=== PATIENT | male | born 1965 | race Caucasian/White ===

== ENCOUNTER 2021-12-26 11:23 | Emergency (ER) | payer OTHER ==
--- NOTE | 2021-12-26 13:53 | RAD REPORT ---
EXAM DESCRIPTION: RAD - Chest Pa And Lat (2 Views) - 12/26/2021 1:38 pm CLINICAL HISTORY: COUGH Chest pain. COMPARISON: No comparisons FINDINGS: Mild interstitial prominence is present. This may indicate a viral infection. The heart is normal in size. No displaced fractures. IMPRESSION: Interstitial opacities bilaterally suggests mild viral infection.
--- NOTE | 2021-12-26 14:27 | ER ---
Nurse's Notes [facility] Name: Thor Allen Age: 56 yrs Sex: Male : 1965 Arrival Date: 12/26/2021 Time: 11:27 Bed 27 [facility] MD: Diagnosis: Acute bronchitis, unspecified Presentation: 12/26 11:50 Chief complaint: Patient states: Cough for 2 days. No fever. Unable to sleep well due ll1 to coughing. Coronavirus screen: Vaccine status: Patient reports being unvaccinated. Client denies travel out of the [place] in the last 14 days. cough unrelated to allergies. Ebola Screen: Patient denies travel to an Ebola-affected area in the 21 days before illness onset. Initial Sepsis Screen: Does the patient meet any 2 criteria? No. Patient's initial sepsis screen is negative. Does the patient have a suspected source of infection? Yes: Productive cough/pneumonia. Risk Assessment: Do you want to hurt yourself or someone else? Patient reports no desire to harm self or others. Onset of symptoms was December 25, 2021. 11:50 Method Of Arrival: Ambulatory ll1 11:50 Acuity: CHERYLE 3 ll1 Triage Assessment: 11:52 General: Appears uncomfortable, Behavior is calm, cooperative, appropriate for age. ll1 Pain: Denies pain. Respiratory: Reports cough that is. Historical: - Allergies: 11:49 No Known Allergies; ll1 - PMHx: 11:49 Hypertensive disorder; Hypercholesterolemia; GERD; back problems; ll1 - PSHx: 11:49 B shoulder; R ankle ORIF; ll1 - Immunization history:: Client reports having NOT received the Covid vaccine. Flu vaccine is up to date. - Social history:: Smoking status: Patient reports the use of cigarette tobacco products, smokes one-half pack cigarettes per day. Screenin:54 Abuse screen: Denies threats or abuse. Denies injuries from another. Nutritional jg9 screening: No deficits noted. Tuberculosis screening: No symptoms or risk factors identified. Fall Risk None identified. Assessment: 12:53 Reassessment: Patient appears in no apparent distress at this time. No changes from jg9 previously documented assessment. Patient and/or family updated on plan of care and expected duration. Pain level reassessed. 13:18 Reassessment: Patient appears in no apparent distress at this time. No changes from jg9 previously documented assessment. Patient and/or family updated on plan of care and expected duration. Pain level reassessed. 14:10 Reassessment: Patient appears in no apparent distress at this time. No changes from jg9 previously documented assessment. Patient and/or family updated on plan of care and expected duration. Pain level reassessed. Vital Signs: 11:50 BP 187 / 105; Pulse 87; Resp 17; Temp 98.1; Pulse Ox 100% on R/A; Weight 111.58 kg; ll1 Height 5 ft. 9 in. (175.26 cm); Pain 0/10; 12:45 BP 132 / 76; Pulse 81; Resp 17 S; Pulse Ox 98% on R/A; jg9 14:00 BP 139 / 80; Pulse 83; Resp 17 S; Pulse Ox 100% on R/A; jg9 14:15 BP 145 / 99; Pulse 83; Resp 17 S; Pulse Ox 96% ; jg9 11:50 Body Mass Index 36.33 (111.58 kg, 175.26 cm) ll1 ED Course: 11:27 Patient arrived in ED. kz 11:49 Arm band placed on. ll1 11:52 Triage completed. ll1 12:15 Patient placed in an exam room, on a stretcher. ll1 12:19 Douglas Smith PA is PHCP. jr8 12:19 Gwendolyn Whitt MD is Attending Physician. jr8 12:52 Deepti Bower, RN is Primary Nurse. jg9 12:54 Patient has correct armband on for positive identification. Bed in low position. Call jg9 light in reach. 13:18 No apparent distress. Resting quietly. Awaiting for x-ray. jg9 13:38 XRAY Chest Pa And Lat (2 Views) In Process Unspecified. EDMS 14:10 No apparent distress. Resting quietly. Awaiting radiology results. jg9 14:34 No provider procedures requiring assistance completed. jg9 14:34 Patient did not have IV access during this emergency room visit. jg9 Administered Medications: No medications were administered Outcome: 14:27 Discharge ordered by . jr8 14:34 Discharged to home ambulatory. jg9 14:34 Condition: stable 14:34 Discharge instructions given to patient, Instructed on discharge instructions, follow up and referral plans. Demonstrated understanding of instructions, follow-up care, medications, Prescriptions given X 3. 14:34 Patient left the ED. jg9 Signatures: Dispatcher [employer] EDMS Douglas Smith PA PA jr8 Leela Hair RN RN ll1 Deepti Bower RN RN jg9 Yasmine Ochoa
--- NOTE | 2021-12-26 14:27 | EDPHYS ---
Physician Documentation [facility] Name: Thor Allen Age: 56 yrs Sex: Male : 1965 Arrival Date: 12/26/2021 Time: 11:27 Bed 27 Private MD: ED Physician Gwendolyn Whitt HPI: 12/26 14:25 This 56 yrs old Male presents to ER via Ambulatory with complaints of Cough. jr8 14:25 Onset: The symptoms/episode began/occurred gradually, 2 day(s) ago. Severity of jr8 symptoms: At their worst the symptoms were mild, in the emergency department the symptoms are unchanged. Modifying factors: The symptoms are alleviated by nothing, the symptoms are aggravated by exertion. Associated signs and symptoms: The patient has no apparent associated signs or symptoms. The patient has not experienced similar symptoms in the past. The patient has not recently seen a physician. Historical: - Allergies: 11:49 No Known Allergies; ll1 - PMHx: 11:49 Hypertensive disorder; Hypercholesterolemia; GERD; back problems; ll1 - PSHx: 11:49 B shoulder; R ankle ORIF; ll1 - Immunization history:: Client reports having NOT received the Covid vaccine. Flu vaccine is up to date. - Social history:: Smoking status: Patient reports the use of cigarette tobacco products, smokes one-half pack cigarettes per day. ROS: 14:25 Eyes: Negative for injury, pain, redness, and discharge, ENT: Negative for injury, jr8 pain, and discharge, Neck: Negative for injury, pain, and swelling, Cardiovascular: Negative for chest pain, palpitations, and edema, Abdomen/GI: Negative for abdominal pain, nausea, vomiting, diarrhea, and constipation, Back: Negative for injury and pain, MS/Extremity: Negative for injury and deformity, Skin: Negative for injury, rash, and discoloration, Neuro: Negative for headache, weakness, numbness, tingling, and seizure. 14:25 Respiratory: Positive for cough, Negative for dyspnea on exertion, shortness of breath, sputum production, wheezing. Exam: 14:25 Constitutional: This is a well developed, well nourished patient who is awake, alert, jr8 and in no acute distress. ENT: Nares patent. No nasal discharge, no septal abnormalities noted. Tympanic membranes are normal and external auditory canals are clear. Oropharynx with no redness, swelling, or masses, exudates, or evidence of obstruction, uvula midline. Mucous membranes moist. Neck: Trachea midline, no thyromegaly or masses palpated, and no cervical lymphadenopathy. Supple, full range of motion without nuchal rigidity, or vertebral point tenderness. No Meningismus. Cardiovascular: Regular rate and rhythm with a normal S1 and S2. No gallops, murmurs, or rubs. Normal PMI, no JVD. No pulse deficits. Respiratory: Lungs have equal breath sounds bilaterally, clear to auscultation and percussion. No rales, rhonchi or wheezes noted. No increased work of breathing, no retractions or nasal flaring. Abdomen/GI: Soft, non-tender, with normal bowel sounds. No distension or tympany. No guarding or rebound. No evidence of tenderness throughout. Back: No spinal tenderness. No costovertebral tenderness. Full range of motion. Skin: Warm, dry with normal turgor. Normal color with no rashes, no lesions, and no evidence of cellulitis. MS/ Extremity: Pulses equal, no cyanosis. Neurovascular intact. Full, normal range of motion. Neuro: Awake and alert, GCS 15, oriented to person, place, time, and situation. Cranial nerves II-XII grossly intact. Motor strength 5/5 in all extremities. Sensory grossly intact. Vital Signs: 11:50 BP 187 / 105; Pulse 87; Resp 17; Temp 98.1; Pulse Ox 100% on R/A; Weight 111.58 kg; ll1 Height 5 ft. 9 in. (175.26 cm); Pain 0/10; 12:45 BP 132 / 76; Pulse 81; Resp 17 S; Pulse Ox 98% on R/A; jg9 14:00 BP 139 / 80; Pulse 83; Resp 17 S; Pulse Ox 100% on R/A; jg9 14:15 BP 145 / 99; Pulse 83; Resp 17 S; Pulse Ox 96% ; jg9 11:50 Body Mass Index 36.33 (111.58 kg, 175.26 cm) ll1 MDM: 12:57 Patient medically screened. jr8 14:25 Data reviewed: vital signs, nurses notes, radiologic studies, plain films. Data jr8 interpreted: Pulse oximetry: on room air is 100 %. Interpretation: normal. Counseling: I had a detailed discussion with the patient and/or guardian regarding: the historical points, exam findings, and any diagnostic results supporting the discharge/admit diagnosis, radiology results, the need for outpatient follow up, a family practitioner, to return to the emergency department if symptoms worsen or persist or if there are any questions or concerns that arise at home. 12/26 13:14 Order name: XRAY Chest Pa And Lat (2 Views); Complete Time: 14:25 jr8 Administered Medications: No medications were administered Disposition Summary: 12/26/21 14:27 Discharge Ordered Location: Home jr8 Problem: new jr8 Symptoms: have improved jr8 Condition: Stable jr8 Diagnosis - Acute bronchitis, unspecified jr8 Followup: jr8 - With: Private Physician - When: 1 week - Reason: Recheck today's complaints, Continuance of care, Re-evaluation by your physician Discharge Instructions: - Discharge Summary Sheet jr8 - Acute Bronchitis, Adult jr8 Forms: - Medication Reconciliation Form jr8 - Thank You Letter jr8 - Antibiotic Education jr8 - Prescription Opioid Use jr8 Prescriptions: - Medrol (Patel) 4 mg Oral Tablets, Dose Pack - take 1 tablet by ORAL route as directed - follow package instructions; 1 jr8 packet; Refills: 0, Product Selection Permitted - promethazine-DM 6.25-15 mg/5 mL Oral syrup - take 5 milliliter by ORAL route every 4-6 hours As needed as needed, not to jr8 exceed 30 mL in 24 hours; 120 milliliter; Refills: 0, Product Selection Permitted - albuterol sulfate 90 mcg/actuation Inhalation HFA aerosol inhaler - inhale 2 puff by INHALATION route every 4-6 hours As needed; 1 Inhaler; jr8 Refills: 0, Product Selection Permitted Signatures: Dispatcher [employer] Douglas Barbour PA PA jr8 Leela Hair RN RN ll1
[2021-12-26 14:49] VITALS: TEMP 98.1
[2021-12-26 14:52] VITALS: BP 145/99; O2SAT 96
== END 2021-12-26 14:34 | disposition home or self-care (01) ==
LOC: ER 11:23
DX: J20.9 Acute bronchitis, unspecified (principal); I10 Essential (primary) hypertension; E78.00 Pure hypercholesterolemia, unspecified; F17.210 Nicotine dependence, cigarettes, uncomplicated
CPT/HCPCS: 71046; 99283

== ENCOUNTER 2021-12-28 21:44 | Emergency (ER) | payer OTHER ==
[2021-12-28] MEDS ORDERED: dexAMETHasone 10 MG/ML VIAL ONE (23:04)
[2021-12-28] MEDS ORDERED: HYDROCODONE/CHLORPHEN 5 ML/OSYR ONE (23:04)
[2021-12-28] MEDS ORDERED: LEVALBUTEROL 1.25 MG/3 ML NEB ONE (23:05)
[2021-12-28] MEDS ORDERED: KETOROLAC 30 MG/ML INJ ONE (23:25)
--- NOTE | 2021-12-29 01:07 | ER ---
Nurse's Notes [facility] Name: Thor Allen Age: 56 yrs Sex: Male : 1965 Arrival Date: 12/28/2021 Time: 21:48 Bed 5 Private MD: Diagnosis: Acute bronchitis, unspecified Presentation: 12/28 21:57 Chief complaint: Patient states: Diagnosed with viral infection from this ER two weeks ld1 ago. SOB, cough, chest pain around 11 this morning. Pt reporting chest pain "due to coughing.". Coronavirus screen: Client presents with at least one sign or symptom that may indicate coronavirus-19. Standard/surgical mask placed on the client. Ebola Screen: No symptoms or risks identified at this time. Initial Sepsis Screen: Does the patient meet any 2 criteria? No. Patient's initial sepsis screen is negative. Does the patient have a suspected source of infection? No. Patient's initial sepsis screen is negative. Risk Assessment: Do you want to hurt yourself or someone else? Patient reports no desire to harm self or others. Onset of symptoms was December 28, 2021. 21:57 Method Of Arrival: Ambulatory ld1 21:57 Acuity: CHERYLE 3 ld1 Triage Assessment: 22:01 General: Appears in no apparent distress. comfortable, Behavior is cooperative, ld1 appropriate for age, anxious. Pain: Complains of pain in chest Pain does not radiate. Pain currently is 6 out of 10 on a pain scale. Neuro: Level of Consciousness is awake, alert, obeys commands, Oriented to person, place, time, situation, Appropriate for age. Cardiovascular: Capillary refill < 3 seconds Patient's skin is warm and dry. Respiratory: Reports shortness of breath cough that is Airway is patent Respiratory effort is even, unlabored, Onset: The symptoms/episode began/occurred gradually, the patient has moderate shortness of breath. GI: Abdomen is round non-distended. : No signs and/or symptoms were reported regarding the genitourinary system. Derm: No signs and/or symptoms reported regarding the dermatologic system. Musculoskeletal: No signs and/or symptoms reported regarding the musculoskeletal system. Historical: - PMHx: 22: back problems; GERD; Hypercholesterolemia; Hypertensive disorder; ld1 - PSHx: 22:01 B shoulder; R ankle ORIF; ld1 - Immunization history:: Adult Immunizations up to date, Client reports having NOT received the Covid vaccine. - Social history:: Smoking status: Patient reports the use of cigarette tobacco products, denies chronic smoking, but will smoke occasionally, Patient/guardian denies using alcohol. Screenin:11 Abuse screen: Denies threats or abuse. Denies injuries from another. Nutritional as6 screening: No deficits noted. Tuberculosis screening: No symptoms or risk factors identified. Fall Risk None identified. Assessment: 23:10 General: Appears in no apparent distress. comfortable, Behavior is calm, cooperative. as6 Neuro: Level of Consciousness is awake, alert, obeys commands, Oriented to person, place, time, situation. Cardiovascular: Rhythm is sinus rhythm. Respiratory: Reports shortness of breath cough that is hacking, persistent Airway is patent Trachea midline Respiratory effort is even, unlabored, Respiratory pattern is regular, symmetrical, Breath sounds are clear bilaterally. 12/29 00:59 Respiratory: Reports cough that is. as6 Vital Signs: 12/28 21:57 BP 151 / 119; Pulse 123; Resp 20; Temp 97.9(TE); Pulse Ox 100% on R/A; Weight 111.58 ld1 kg; Height 5 ft. 9 in. (175.26 cm); Pain 6/10; 23:10 BP 142 / 104; Pulse 88; Resp 18 S; Pulse Ox 100% on R/A; as6 03 00:56 BP 148 / 103; Pulse 104; Resp 20 S; Pulse Ox 100% on R/A; as6 01:25 Pulse 94; Resp 20; Pulse Ox 100% ; tw5 12/28 21:57 Body Mass Index 36.33 (111.58 kg, 175.26 cm) ld1 ED Course: 12/28 21:48 Patient arrived in ED. es 21:52 Luis Meza NP is PHCP. pm1 21:52 Dimas Boyer DO is Attending Physician. pm1 21:57 Arm band placed on right wrist. ld1 22:01 Triage completed. ld1 22:59 Walter Goetz, ANUJA is Primary Nurse. as6 23:11 Bed in low position. Call light in reach. Pulse ox on. NIBP on. as6 12/29 00:22 Chest Pa And Lat (2 Views) XRAY In Process Unspecified. EDMS 01:25 No provider procedures requiring assistance completed. Patient did not have IV access tw5 during this emergency room visit. Administered Medications: 12/28 23:09 Drug: Xopenex (levalbuterol) (3) 1.25 mg Route: Inhalation; as 23:09 Drug: Tussionex Pennkinetic ER (chlorpheniramine-hydrocodone) Suspension 5 ml Route: PO;as12/29 01:23 Follow up: Response: No adverse reaction tw5 12/28 23:09 Drug: Decadron (dexamethasone) 10 mg Route: IM; Site: right deltoid; as6 12/29 01:23 Follow up: Response: No adverse reaction tw5 12/28 23:25 Drug: Ketorolac 60 mg Route: IM; Site: left deltoid; as6 12/29 01:24 Follow up: Response: No adverse reaction tw5 01:23 Drug: Benadryl (diphenhydrAMINE) 25 mg Route: IM; Site: left deltoid; tw5 01:24 Follow up: Response: No adverse reaction tw5 Outcome: 01:07 Discharge ordered by . pm1 01:25 Discharged to home with friend. tw5 01:25 Condition: good 01:25 Discharge instructions given to patient, Instructed on discharge instructions, follow up and referral plans. Demonstrated understanding of instructions, follow-up care, medications, Prescriptions given X 2. 01:26 Patient left the ED. tw5 Signatures: Dispatcher [employer] EDMS Sharmin Ching Patrick, NP [employer] pm1 Sandi Varela RN RN ld1 Nelsy Degroot tw5 Waltre Goetz RN RN as6 Corrections: (The following items were deleted from the chart) 12/28 22:02 21:57 Chief complaint: Patient states: Diagnosed with viral infection from this ER two ld1 weeks ago. SOB, cough, chest pain around 11 this morning. ld1 22:02 21:57 BP 151 / 119; Pulse 123bpm; Resp 20bpm; Pulse Ox 100% RA; Temp 97.9F Temporal; ld1 111.58 kg; Height 5 ft. 9 in.; BMI: 36.3; Pain 0/10; ld1
--- NOTE | 2021-12-29 01:07 | EDPHYS ---
Physician Documentation [facility] Name: Thor Allen Age: 56 yrs Sex: Male : 1965 Arrival Date: 12/28/2021 Time: 21:48 Bed 5 Private MD: ED Physician Dimas Boyer HPI: 12/28 22:16 This 56 yrs old Male presents to ER via Ambulatory with complaints of Breathing pm1 Difficulty, Cough, Chest Pain, Tingling. 22:16 The patient has shortness of breath at rest. Onset: The symptoms/episode began/occurred pm1 3 day(s) ago. Duration: The symptoms are continuous, and are steadily getting worse. The patient's shortness of breath is aggravated by coughing, is alleviated by nothing. Associated signs and symptoms: Pertinent positives: chest pain, productive cough, Pertinent negatives: fever. Severity of symptoms: in the emergency department the symptoms are worse. The patient has not experienced similar symptoms in the past. The patient has been recently seen by a physician: The patient has been recently seen at the [facility] Emergency Department, last week, for similar complaints X-rays were performed, Diagnosis status of bronchitis. Historical: - PMHx: 22:01 back problems; GERD; Hypercholesterolemia; Hypertensive disorder; ld1 - PSHx: 22:01 B shoulder; R ankle ORIF; ld1 - Immunization history:: Adult Immunizations up to date, Client reports having NOT received the Covid vaccine. - Social history:: Smoking status: Patient reports the use of cigarette tobacco products, denies chronic smoking, but will smoke occasionally, Patient/guardian denies using alcohol. ROS: 22:16 Constitutional: Negative for fever, chills, and weight loss. pm1 22:16 Abdomen/GI: Negative for abdominal pain, nausea, vomiting, diarrhea, and constipation, Back: Negative for injury and pain, MS/Extremity: Negative for injury and deformity, Skin: Negative for injury, rash, and discoloration, Neuro: Negative for headache, weakness, numbness, tingling, and seizure. 22:16 Cardiovascular: Positive for chest pain, with cough, Negative for edema, palpitations. 22:16 Respiratory: Positive for cough, "sounds productive", shortness of breath. 22:16 All other systems are negative. Exam: 22:16 Constitutional: This is a well developed, well nourished patient who is awake, alert, pm1 and in no acute distress. Head/Face: Normocephalic, atraumatic. 22:16 Back: No spinal tenderness. No costovertebral tenderness. Full range of motion. Skin: Warm, dry with normal turgor. Normal color with no rashes, no lesions, and no evidence of cellulitis. MS/ Extremity: Pulses equal, no cyanosis. Neurovascular intact. Full, normal range of motion. 22:16 Eyes: Exam is negative for acute changes, Periorbital structures: appear normal, Extraocular movements: no acute changes. 22:16 ENT: Exam is negative for acute changes, Mouth: no acute changes, Lips: normal, moist, Oral mucosa: normal, pink and intact, moist. 22:16 Cardiovascular: Exam negative for acute changes, Rate: normal, Rhythm: regular, Pulses: no pulse deficits are appreciated. 22:16 Respiratory: Exam negative for acute changes, respiratory distress, shortness of breath, the patient does not display signs of respiratory distress, Respirations: normal, Breath sounds: are clear throughout. 22:16 Abdomen/GI: Inspection: abdomen appears normal, Palpation: abdomen is soft and non-tender. 22:16 Neuro: Exam negative for acute changes, Orientation: is normal, Mentation: is normal, Motor: is normal, moves all fours. Vital Signs: 21:57 BP 151 / 119; Pulse 123; Resp 20; Temp 97.9(TE); Pulse Ox 100% on R/A; Weight 111.58 ld1 kg; Height 5 ft. 9 in. (175.26 cm); Pain 6/10; 23:10 BP 142 / 104; Pulse 88; Resp 18 S; Pulse Ox 100% on R/A; as6 12/29 00:56 BP 148 / 103; Pulse 104; Resp 20 S; Pulse Ox 100% on R/A; as6 01:25 Pulse 94; Resp 20; Pulse Ox 100% ; tw5 12/28 21:57 Body Mass Index 36.33 (111.58 kg, 175.26 cm) ld1 MDM: 12/28 22:50 Patient medically screened. ms3 12/29 00:57 Data reviewed: vital signs. Data interpreted: Pulse oximetry: on room air is 100 %. pm1 Interpretation: normal. 01:06 Counseling: I had a detailed discussion with the patient and/or guardian regarding: the pm1 historical points, exam findings, and any diagnostic results supporting the discharge/admit diagnosis, radiology results, the need for outpatient follow up, to return to the emergency department if symptoms worsen or persist or if there are any questions or concerns that arise at home. 12/28 23:10 Order name: Chest Pa And Lat (2 Views) XRAY pm1 12/28 22:07 Order name: EKG - Nurse/Tech; Complete Time: 22:07 ld1 Administered Medications: 12/28 23:09 Drug: Xopenex (levalbuterol) (3) 1.25 mg Route: Inhalation; 23:09 Drug: Tussionex Pennkinetic ER (chlorpheniramine-hydrocodone) Suspension 5 ml Route: PO;12/29 01:23 Follow up: Response: No adverse reaction 12/28 23:09 Drug: Decadron (dexamethasone) 10 mg Route: IM; Site: right deltoid; 12/29 01:23 Follow up: Response: No adverse reaction 12/28 23:25 Drug: Ketorolac 60 mg Route: IM; Site: left deltoid; 12/29 01:24 Follow up: Response: No adverse reaction 01:23 Drug: Benadryl (diphenhydrAMINE) 25 mg Route: IM; Site: left deltoid; 01:24 Follow up: Response: No adverse reaction Disposition: 02:40 Co-signature as Attending Physician, Dimas Boyer DO I agree with the assessment and ms3 plan of care. Disposition Summary: 12/29/21 01:07 Discharge Ordered Location: Home pm1 Problem: new pm1 Symptoms: have improved pm1 Condition: Stable pm1 Diagnosis - Acute bronchitis, unspecified pm1 Followup: pm1 - With: Emergency Department - When: As needed - Reason: Worsening of condition Followup: pm1 - With: Private Physician - When: 2 - 3 days - Reason: Recheck today's complaints, Continuance of care, Re-evaluation by your physician Discharge Instructions: - Discharge Summary Sheet pm1 - Acute Bronchitis, Adult pm1 Forms: - Medication Reconciliation Form pm1 - Thank You Letter pm1 - Antibiotic Education pm1 - Prescription Opioid Use pm1 Prescriptions: - Guaifenesin AC 10-100 mg/5 mL Oral Liquid - take 10 milliliters by ORAL route every 4 hours As needed; 240 milliliter; pm1 Refills: 0, Product Selection Permitted Signatures: Dispatcher [employer] EDMS Luis Meza, R[employer] REPORTER [employer] REPORTER pm1 Dimas Boyer DO DO ms3 Sandi Varela RN RN ld1 Nelsy Degroot tw5 Walter Goetz RN RN as6
[2021-12-29] MEDS ORDERED: DIPHENHYDRAMINE 50 MG/ML VIAL ONE (01:18)
[2021-12-29 04:47] VITALS: TEMP 97.9; O2SAT 100
[2021-12-29 04:49] VITALS: BP 148/103
--- NOTE | 2021-12-29 08:20 | EKG ---
Test Date: 2021-12-28 Test Time: 22:03:27 Tax Appraiser: DA MEASUREMENT RESULTS: Intervals: Rate: 94 FL: 128 QRSD: 78 QT: 340 QTc: 425 [place]: P: 64 FL: 128 QRS: 52 T: 57 INTERPRETIVE STATEMENTS: Normal sinus rhythm Normal ECG No previous ECG available for comparison Electronically Signed On 12-29-21 08:19:23 CDT by Jn Pool
--- NOTE | 2021-12-29 13:29 | RAD REPORT ---
EXAM DESCRIPTION: RAD - Chest Pa And Lat (2 Views) - 12/29/2021 12:22 am CLINICAL HISTORY: 56 years, Male, SOB COMPARISON: None. FINDINGS: 2 x-ray views of the chest (PA and lateral) were obtained, no prior films are available th is time for comparison. The cardiomediastinal silhouette demonstrate to be within normal limits. Th e heart is not enlarged. The thoracic aorta is unremarkable. Costophrenic angles are sharp. No area s of consolidations or masses are identified. There is minimal anterior spondylosis of the mid/lower thoracic spine The rest of the soft tissue and bony structures are unremarkable. IMPRESSION: No acute cardiopulmonary disease. Electronically signed by: Nj Braun MD 12/29/2021 12:34 AM CDT Due to temporary technical issues with the PACS/Fluency reporting system, reports are being signed by the in house radiologist without review as a courtesy to ensure prompt reporting. The interpreting r adiologist is fully responsible for the content of the report.
== END 2021-12-29 01:26 | disposition home or self-care (01) ==
LOC: ER 21:44
DX: J20.9 Acute bronchitis, unspecified (principal); I10 Essential (primary) hypertension; F17.210 Nicotine dependence, cigarettes, uncomplicated
CPT/HCPCS: 71046; 93005; 96372; 99285; J1100; J1200

== ENCOUNTER 2021-12-29 20:00 | Inpatient (IN) | payer OTHER ==
[2021-12-29] MEDS ORDERED: HYDROCODONE/CHLORPHEN 5 ML/OSYR ONE (21:03)
[2021-12-29] MEDS ORDERED: CEFTRIAXONE 1000 MG/VIAL ONE (21:03)
[2021-12-29] MEDS ORDERED: LEVALBUTEROL 1.25 MG/3 ML NEB ONE (21:04)
[2021-12-29] MEDS ORDERED: NA CHLORIDE 0.9% 1,000 ML ONE ×2 (21:04→22:56)
[2021-12-29] MEDS ORDERED: IPRATROPIUM BROM 0.5MG/2.5ML ONE (21:04)
[2021-12-29] MEDS ORDERED: FAMOTIDINE 20 MG/2 ML VIAL IV ONE (21:04)
--- NOTE | 2021-12-29 21:12 | ER ---
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 20:25 Coronavirus screen: At this time, the client does not indicate any symptoms associated lp1 with coronavirus-19. Ebola Screen: No symptoms or risks identified at this time. Initial Sepsis Screen: Does the patient meet any 2 criteria? No. Patient's initial sepsis screen is negative. Does the patient have a suspected source of infection? No. Patient's initial sepsis screen is negative. Risk Assessment: Do you want to hurt yourself or someone else? Patient reports no desire to harm self or others. Onset of symptoms was December 29, 2021. 20:25 Method Of Arrival: EMS: [facility] lp1 20:27 Acuity: CHERYLE 3 lp1 Historical: - Allergies: 20:43 No Known Allergies; lp1 - Home Meds: 20:43 levothyroxine 150 mcg tab 1 tab once daily [Active]; metoclopramide HCl 10 mg Oral tab lp1 1 tab once daily [Active]; atorvastatin 40 mg oral tab 1 tab once daily [Active]; tizanidine 4 mg oral tab twice a day [Active]; metoprolol tartrate 25 mg Oral tab 0.5 tab 2 times per day [Active]; pantoprazole 40 mg oral TbEC 1 tab once daily [Active]; pregabalin 100 mg Oral cap 1 cap 3 times per day [Active]; - PMHx: 20:43 back problems; GERD; Hypercholesterolemia; Hypertensive disorder; lp1 - PSHx: 20:43 B shoulder; R ankle ORIF; lp1 - Immunization history:: Adult Immunizations up to date. - Social history:: Smoking status: Patient reports the use of cigarette tobacco products, denies chronic smoking, but will smoke occasionally. - Family history:: not pertinent. Screenin:31 Abuse screen: Denies threats or abuse. Denies injuries from another. Nutritional ab2 screening: No deficits noted. Tuberculosis screening: No symptoms or risk factors identified. Fall Risk None identified. Assessment: 21:30 General: Appears in no apparent distress. uncomfortable, Behavior is calm, cooperative, ab2 appropriate for age. Pain: Denies pain. Neuro: Level of Consciousness is awake, alert, obeys commands, Oriented to person, place, time, situation, Appropriate for age Strip Cutter are equal bilaterally Moves all extremities. Gait is steady, Speech is normal, Facial symmetry appears normal, Reports dizziness. Cardiovascular: Reports shortness of breath, Heart tones S1 S2 present Respiratory: Airway is patent Respiratory effort is labored, Respiratory pattern is symmetrical, Breath sounds with wheezes bilaterally. GI: No deficits noted. No signs and/or symptoms were reported involving the gastrointestinal system. Abdomen is round non-distended, Bowel sounds present X 4 quads. : No deficits noted. No signs and/or symptoms were reported regarding the genitourinary system. EENT: No deficits noted. No signs and/or symptoms were reported regarding the EENT system. Derm: Skin is diaphoretic, Skin temperature is warm. 21:31 Respiratory: Reports shortness of breath cough that is air hunger labored breathing. ab2 21:55 Reassessment: No changes from previously documented assessment. ab2 12/30 14:54 Reassessment: Charting done in the [facility]. Pt report given to ANUJA Ghosh on 2nd floor. Pt ic1 transported to unit via wheelchair. VSS. In NAD. Vital Signs: 12/29 20:25 BP 157 / 101; Pulse 116; Resp 22; Temp 97(TE); Pulse Ox 100% on R/A; Weight 111.58 kg; lp1 Height 5 ft. 9 in. (175.26 cm); 21:53 BP 178 / 98; Pulse 115; Resp 28; Pulse Ox 97% on R/A; ab2 20:25 Body Mass Index 36.33 (111.58 kg, 175.26 cm) lp1 ED Course: 20:16 Patient arrived in ED. mw2 20:17 James Mejia MD is Attending Physician. velvet 20:27 Triage completed. lp1 20:43 Arm band placed on. lp1 20:49 Juan Antonio Wynn is Primary Nurse. ab2 21:01 XRAY Chest (1 view) In Process Unspecified. EDMS 21:06 Gwendolyn Chapin MD is Hospitalizing Provider. velvet 21:20 Blood Culture Adult (2) Sent. ab2 21:20 Basic Metabolic Panel Sent. ab2 21:20 CBC with Diff Sent. ab2 21:20 LFT's Sent. ab2 21:20 Magnesium Sent. ab2 21:20 NT PRO-BNP Sent. ab2 21:20 PT-INR Sent. ab2 21:20 Troponin HS Sent. ab2 21:31 No provider procedures requiring assistance completed. Maintain EMS IV. Dressing ab2 intact. Good blood return noted. Site clean \\T\\ dry. Gauge \\T\\ site: 20 R forearm. 21:32 Patient has correct armband on for positive identification. Bed in low position. Call ab2 light in reach. Side rails up X2. 21:43 COVID-19/FLU A+B (Document "Date of Onset" if Symptomatic) Sent. ab2 22:30 CT Chest For PE Angio In Process Unspecified. EDMS 03 03:56 Patient admitted, IV remains in place. vc1 Administered Medications: 12/29 20:55 CANCELLED (Given by EMS; Provider notified ): SOLU-Medrol (methylPrednisoLONE) 125 mg lp1 IVP once 21:26 Drug: Rocephin (cefTRIAXone) 1 grams Route: IV; Rate: per protocol; Site: right forearm;ab2 21:43 Follow up: Response: No adverse reaction ab2 21:44 Follow up: Response: No adverse reaction ab2 21:44 Follow up: IV Status: Completed infusion ab2 21:26 Drug: Pepcid (famotidine) 20 mg Route: IVP; Site: right forearm; ab2 21:43 Follow up: Response: No adverse reaction ab2 21:26 Drug: Tussionex Pennkinetic ER (chlorpheniramine-hydrocodone) Suspension 5 ml Route: PO;ab2 21:43 Follow up: Response: No adverse reaction ab2 21:27 Drug: NS 0.9% 1000 ml Route: IV; Rate: 125 ml/hr; Site: right forearm; ab2 21:29 Drug: Xopenex (levalbuterol) 2.5 mg Route: Inhalation; ab2 21:43 Follow up: Response: No adverse reaction ab2 21:29 Drug: AtroVENT (ipratropium) Aerosol 0.5 mg Route: Inhalation; ab2 21:47 Drug: Aspirin 81 mg Route: PO; ab2 23:03 Drug: NS 0.9% 1000 ml Route: IV; Rate: 1 bolus; Site: right forearm; ld1 23:03 Drug: Zithromax (azithromycin) 500 mg Route: IVPB; Infused Over: 1 hrs; Site: right ld1 forearm; Outcome: 21:12 Decision to Hospitalize by Provider. velvet 12/30 00:00 Admitted to ER Hold. [email or web address]. vc1 Condition: good 00:00 Instructed on the need for admit. vc1 14:57 Patient left the ED. ic1 Signatures: Dispatcher [employer] EDJames Camacho MD MD cha Pena, Laura, RN RN 1 David Wright 2 Sandi Varela RN RN ld1 Arline Linares RN RN ic1 Juan Antonio Wynn ab2 Wendy Sy RN RN vc1
--- NOTE | 2021-12-29 21:12 | EDPHYS ---
Physician Documentation [facility] Name: Thor Allen Age: 56 yrs Sex: Male : 1965 Arrival Date: 12/29/2021 Time: 20:16 Bed 14 Private MD: MARY Physician James Mejia HPI: 12/29 20:38 This 56 yrs old Male presents to ER via Unassigned with complaints of sob. velvet 20:38 The patient has shortness of breath at rest, with light activity. Onset: The velvet symptoms/episode began/occurred 1 day(s) ago. Duration: The symptoms are continuous, and are steadily getting worse. The patient's shortness of breath has no apparent modifying factors. The patient or guardian reports chest pain that is located primarily in the epigastric area. Onset: 3 day(s) ago. The pain does not radiate. Associated signs and symptoms: The patient has no apparent associated signs or symptoms. The chest pain is described as burning. Historical: - Allergies: 20:43 No Known Allergies; lp1 - Home Meds: 20:43 levothyroxine 150 mcg tab 1 tab once daily [Active]; metoclopramide HCl 10 mg Oral tab lp1 1 tab once daily [Active]; atorvastatin 40 mg oral tab 1 tab once daily [Active]; tizanidine 4 mg oral tab twice a day [Active]; metoprolol tartrate 25 mg Oral tab 0.5 tab 2 times per day [Active]; pantoprazole 40 mg oral TbEC 1 tab once daily [Active]; pregabalin 100 mg Oral cap 1 cap 3 times per day [Active]; - PMHx: 20:43 back problems; GERD; Hypercholesterolemia; Hypertensive disorder; lp1 - PSHx: 20:43 B shoulder; R ankle ORIF; lp1 - Immunization history:: Adult Immunizations up to date. - Social history:: Smoking status: Patient reports the use of cigarette tobacco products, denies chronic smoking, but will smoke occasionally. - Family history:: not pertinent. ROS: 20:38 Constitutional: Negative for fever, chills, and weight loss, Eyes: Negative for injury, velvet pain, redness, and discharge, ENT: Negative for injury, pain, and discharge, Neck: Negative for injury, pain, and swelling, Cardiovascular: Negative for chest pain, palpitations, and edema, Abdomen/GI: Negative for abdominal pain, nausea, vomiting, diarrhea, and constipation, Back: Negative for injury and pain, : Negative for injury, bleeding, discharge, and swelling, MS/Extremity: Negative for injury and deformity, Skin: Negative for injury, rash, and discoloration, Neuro: Negative for headache, weakness, numbness, tingling, and seizure, Psych: Negative for depression, anxiety, suicide ideation, homicidal ideation, and hallucinations, Allergy/Immunology: Negative for hives, rash, and allergies, Endocrine: Negative for neck swelling, polydipsia, polyuria, polyphagia, and marked weight changes, Hematologic/Lymphatic: Negative for swollen nodes, abnormal bleeding, and unusual bruising. 20:38 Respiratory: Positive for cough, shortness of breath, at rest. Exam: 20:38 Constitutional: This is a well developed, well nourished patient who is awake, alert, velvet and in no acute distress. Head/Face: Normocephalic, atraumatic. Eyes: Pupils equal round and reactive to light, extra-ocular motions intact. Lids and lashes normal. Conjunctiva and sclera are non-icteric and not injected. Cornea within normal limits. Periorbital areas with no swelling, redness, or edema. ENT: Nares patent. No nasal discharge, no septal abnormalities noted. Tympanic membranes are normal and external auditory canals are clear. Oropharynx with no redness, swelling, or masses, exudates, or evidence of obstruction, uvula midline. Mucous membranes moist. Neck: Trachea midline, no thyromegaly or masses palpated, and no cervical lymphadenopathy. Supple, full range of motion without nuchal rigidity, or vertebral point tenderness. No Meningismus. Chest/axilla: Normal chest wall appearance and motion. Nontender with no deformity. No lesions are appreciated. Cardiovascular: Regular rate and rhythm with a normal S1 and S2. No gallops, murmurs, or rubs. Normal PMI, no JVD. No pulse deficits. Abdomen/GI: Soft, non-tender, with normal bowel sounds. No distension or tympany. No guarding or rebound. No evidence of tenderness throughout. Back: No spinal tenderness. No costovertebral tenderness. Full range of motion. Male : Normal genitalia with no discharge or lesions. Skin: Warm, dry with normal turgor. Normal color with no rashes, no lesions, and no evidence of cellulitis. MS/ Extremity: Pulses equal, no cyanosis. Neurovascular intact. Full, normal range of motion. Neuro: Awake and alert, GCS 15, oriented to person, place, time, and situation. Cranial nerves II-XII grossly intact. Motor strength 5/5 in all extremities. Sensory grossly intact. Cerebellar exam normal. Normal gait. Psych: Awake, alert, with orientation to person, place and time. Behavior, mood, and affect are within normal limits. 20:38 Respiratory: mild respiratory distress is noted, Respirations: labored breathing, is not present, Breath sounds: are clear throughout, no bronchial sounds, no decreased breath sounds, no rales, rhonchi, no stridor, no wheezing, Respiratory rate: 22 21:51 ECG was reviewed by the Attending Physician. velvet Vital Signs: 20:25 BP 157 / 101; Pulse 116; Resp 22; Temp 97(TE); Pulse Ox 100% on R/A; Weight 111.58 kg; lp1 Height 5 ft. 9 in. (175.26 cm); 21:53 BP 178 / 98; Pulse 115; Resp 28; Pulse Ox 97% on R/A; ab2 20:25 Body Mass Index 36.33 (111.58 kg, 175.26 cm) lp1 MDM: 20:18 Patient medically screened. velvet 20:58 Differential diagnosis: abnormal EKG, acute myocardial infarction, anxiety, congestive velvet heart failure esophagitis, gastritis, hiatal hernia, pneumonia, Pneumothorax pulmonary edema, Pulmonary Embolism reactive airway disease, Sepsis. Antibiotic administration: Rocephin and Zithromax given. HEART Score: History: Slightly Suspicious (0), ECG: Non specific repolarization disturbance / LBTB / PM (1), Age: > 45 and < 65 years (1), Risk Factors: > or = 3 Risk factors for atherosclerotic disease (2), [Hypertension] [Active Smoker] [+ Family HX] Troponin: < or = 1 x Normal Limit (0). The patient was given aspirin in the Emergency Department. The patient's Wells Deep Vein Thrombosis Score was calculated as follows: Total Score: 0. This patient was found to be at low risk for a deep vein thrombosis by using the Well's assessment criteria Heart Rate >100 BPM (1.5 Pts) Total Score: 0-2 Pts- Low Risk. The patient's pulmonary embolism risk score was calculated as follows: Total Score: 0-2 points. This patient was found to be at low risk for a pulmonary embolism by using the Well's assessment criteria Total Score: 0-2 points. This patient was found to be at low risk for a pulmonary embolism by using the Well's assessment criteria. VIVIENNE Risk Score: 1 - Three or more CAD risk factors, TOTAL SCORE = 2. Immunization status: Influenza vaccine: Data reviewed: vital signs, nurses notes, lab test result(s), EKG, radiologic studies, CT scan, plain films. Data interpreted: youth nutritional monitor: rate is 116 beats/min, rhythm is regular, Pulse oximetry: on room air is 100 %. Test interpretation: by ED physician or midlevel provider: ECG, plain radiologic studies. 12/29 20:27 Order name: Basic Metabolic Panel; Complete Time: 22:41 [facility] 12/29 20:27 Order name: CBC with Diff; Complete Time: 23:34 [facility] 12/29 20:27 Order name: LFT's; Complete Time: 22:41 [facility] 12/29 20:27 Order name: Magnesium; Complete Time: 22:41 [facility] 12/29 20:27 Order name: NT PRO-BNP; Complete Time: 22:41 [facility] 12/29 20:27 Order name: PT-INR; Complete Time: 22:41 [facility] 12/29 20:27 Order name: Troponin HS; Complete Time: 22:41 [facility] 12/29 20:27 Order name: Blood Culture Adult (2) [facility] 12/29 20:27 Order name: COVID-19/FLU A+B (Document "Date of Onset" if Symptomatic); Complete Time: velvet 22:41 12/29 20:27 Order name: Lactate; Complete Time: 22:41 [facility] 12/29 21:40 Order name: Manual Differential; Complete Time: 23:34 EDMS 12/30 00:13 Order name: Procalcitonin EDPR 12/30 00:54 Order name: Lactate Sepsis 2 HR Follow-up EDPR 12/30 04:44 Order name: CBC with Automated Diff EDPR 12/29 20:27 Order name: XRAY Chest (1 view); Complete Time: 21:38 [facility] 12/29 20:27 Order name: CT Chest For PE Angio [facility] 12/30 04:57 Order name: Lactate EDPR 12/30 05:07 Order name: Comprehensive Metabolic Panel EDPR 12/30 05:07 Order name: Phosphorus EDPR 12/30 05:07 Order name: Lipid Profile [facility] 12/30 05:07 Order name: T4 Free EDPR 12/30 05:07 Order name: Magnesium [facility] 12/30 05:07 Order name: Thyroid Stimulating Hormone [facility] 12/30 05:16 Order name: Urine Dipstick-Ancillary EDPR 12/30 05:33 Order name: Urinalysis [facility] 12/30 07:38 Order name: Lactate Sepsis 2 HR Follow-up [facility] 12/29 20:27 Order name: EKG; Complete Time: 20:28 [facility] 12/29 20:27 Order name: Cardiac monitoring; Complete Time: 21:20 [facility] 12/29 20:27 Order name: EKG - Nurse/Tech; Complete Time: 21:43 [facility] 12/29 20:27 Order name: IV Saline Lock; Complete Time: 21:20 [facility] 12/29 20:27 Order name: Labs collected and sent; Complete Time: 21:20 [facility] 12/29 20:27 Order name: O2 Per Protocol; Complete Time: 21:20 [facility] 12/29 20:27 Order name: O2 Sat Monitoring; Complete Time: 21:20 [facility] EC:51 Rate is 106 beats/min. Rhythm is regular. QRS [place] is Normal. [place] interval is normal. [facility] QRS interval is normal. QT interval is normal. No Q waves. T waves are Normal. No ST changes noted. Clinical impression: Sinus tachycardia. Interpreted by me. Reviewed by me. Administered Medications: 20:55 CANCELLED (Given by EMS; Provider notified ): SOLU-Medrol (methylPrednisoLONE) 125 mg lp1 IVP once :26 Drug: Rocephin (cefTRIAXone) 1 grams Route: IV; Rate: per protocol; Site: right forearm;ab2 21:43 Follow up: Response: No adverse reaction ab2 :44 Follow up: Response: No adverse reaction ab2 21:44 Follow up: IV Status: Completed infusion ab2 : Drug: Pepcid (famotidine) 20 mg Route: IVP; Site: right forearm; ab2 21:43 Follow up: Response: No adverse reaction ab2 : Drug: Tussionex Pennkinetic ER (chlorpheniramine-hydrocodone) Suspension 5 ml Route: PO;ab2 21:43 Follow up: Response: No adverse reaction ab2 21:27 Drug: NS 0.9% 1000 ml Route: IV; Rate: 125 ml/hr; Site: right forearm; ab2 21:29 Drug: Xopenex (levalbuterol) 2.5 mg Route: Inhalation; ab2 21:43 Follow up: Response: No adverse reaction ab2 21:29 Drug: AtroVENT (ipratropium) Aerosol 0.5 mg Route: Inhalation; ab2 21:47 Drug: Aspirin 81 mg Route: PO; ab2 23:03 Drug: NS 0.9% 1000 ml Route: IV; Rate: 1 bolus; Site: right forearm; ld1 23:03 Drug: Zithromax (azithromycin) 500 mg Route: IVPB; Infused Over: 1 hrs; Site: right ld1 forearm; Disposition Summary: 12/29/21 21:12 Hospitalization Ordered Hospitalization Status: Observation velvet Provider: Gwendolyn Chapin cha Condition: Fair velvet Problem: an ongoing problem velvet Symptoms: have worsened velvet Bed/Room Type: Standard velvet Location: Telemetry/MedSurg (observation)(12/30/21 13:35) bd Room Assignment: 216(12/30/21 13:35) bd Diagnosis - Chest pain, unspecified velvet - Dyspnea velvet - COPD/ Chronic obstructive pulmonary disease with (acute) exacerbation velvet - Cough - 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 velvet lp1 23:51 21:12 Telemetry/MedSurg (observation) velvet cg 23:51 21:12 velvet cg 12/30 13:35 12/29 23:51 BR ER HOLD cg bd 12/30 13:35 12/29 23:51 ERHOLD- cg bd
--- NOTE | 2021-12-29 21:25 | RAD REPORT ---
EXAM DESCRIPTION: RAD - Chest Single View - 12/29/2021 9:01 pm CLINICAL HISTORY: COUGH Chest pain. COMPARISON: Chest Pa And Lat (2 Views) dated 12/29/2021; Chest Pa And Lat (2 Views) dated 12/26/2021 FINDINGS: Portable technique limits examination quality. Mildly prominent interstitial markings bilaterally could indicate a viral infection. The heart is nor mal in size. No displaced fractures.
[2021-12-29 21:39] LABS: Hematocrit 43.3 % (39.6-49.0); Lymphocytes % 5.9 % (15.3-44.8); MPV 7.8 fL (7.6-11.3); RBC Red Blood Cell Count 5.11 M/uL (4.33-5.43)
[2021-12-29 21:40] LABS: Protime INR 1.09
[2021-12-29] MEDS ORDERED: ASPIRIN 81 MG CHEWABLE TABLET ONE (21:49)
[2021-12-29 22:07] LABS: Albumin 4.1 g/dL (3.4-5.0); Bilirubin Direct 0.2 mg/dL (0-0.2); Bilirubin Total 0.7 mg/dL (0.2-1.0); Potassium 3.6 mmol/L (3.5-5.1); Protein, Total 8.2 g/dL (6.4-8.2)
[2021-12-29 22:20] LABS: Magnesium 1.6 mg/dL (1.8-2.4); Troponin High Sensitivity 17.2 pg/mL (<58.9)
[2021-12-29 22:22] LABS: SARS-COV-2 RT PCR NEGATIVE (NEGATIVE)
[2021-12-29] MEDS ORDERED: AZITHROMYCIN 500 MG INJ IVPB ONE (22:55)
[2021-12-29] MEDS ORDERED: NA CHLORIDE 0.9% 250 ML ONE (22:56)
[2021-12-29 23:07] LABS: Blood Morphology Comment NOTED (NOT SEEN); Platelet Estimate ADEQ; Polychromasia SLIGHT
[2021-12-29] MEDS ORDERED: ACETAMINOPHEN 500 MG TAB PO PRN (23:22)
[2021-12-29] MEDS ORDERED: SODIUM CHL 0.9% 1000 ML BAG IV ONE (23:22)
[2021-12-29] MEDS ORDERED: ONDANSETRON 4 MG/2 ML VIAL IV PRN (23:22)
[2021-12-29] MEDS ORDERED: ALBUTEROL 2.5 MG/3 ML NEB SOL NEB PRN (23:22)
[2021-12-29] MEDS ORDERED: ALPRAZOLAM 0.5 MG TABLET PO ONE (23:27)
--- NOTE | 2021-12-29 23:34 | P.HP ---
Certification for Inpatient Patient admitted to: Inpatient With expected LOS: <2 Midnights Patient will require the following post-hospital care: None Practitioner: I am a practitioner with admitting privileges, knowledge of patient current condition, hospital course, and medical plan of care. Services: Services provided to patient in accordance with Admission requirements found in Title 42 Section 412.3 of the Code of Federal Regulations Patient History Date of Service: 12/29/21 Primary Care Provider: None Reason for admission: SHOB History of Present Illness: Patient is a 56-year-old male with hypertension, hyperlipidemia, GERD who presented to the ED via EMS with complaints of cough and shortness of breath for about 1 week. This is his third visit for the same problem. He has been taking prednisone and guaifenesin without improvement. He was given Tussionex, Pepcid, Solu-Medrol, Rocephin, azithromycin, levalbuterol, ipratropium in the ED. Upon examination, patient is anxious and taking shallow breaths. He reports it is hard for him to breathe because he is coughing up sputum. O2 saturation is 100%. labs are significant for WBC of 17.5, lactic acid 3.4, magnesium 1.6, flu and Covid negative. Chest x-ray suggested viral etiology. CT chest pending. Sepsis fluids bolus, blood cultures, sputum culture ordered. Patient is tachycardic, Hypertensive, and tachypneic. Ordered scheduled breathing treatments. Repeat lactic acid every 4 hours. Procalcitonin ordered. Pulmonology consulted. Patient will be admitted for further evaluation and treatment of shortness of breath. Home medications list reviewed: Yes - Past Medical/Surgical History Diabetic: No -: HTN -: HLD -: GERD -: Back Surgery Psychosocial/ Personal History: Patient is visiting. He lives in [place]. - Family History Mother -: Lung disease - Social History Smoking Status: Current some day smoker Counseled patient to stop smoking for: less than 10 minutes Alcohol use: Yes CD- Drugs: No Caffeine use: Yes Place of Residence: Home Review of Systems General: Weakness Respiratory: Cough, Shortness of Breath, Pleuritic Pain, Sputum Physical Examination - Physical Exam General: Alert, In no apparent distress HEENT: Atraumatic, PERRLA, Mucous membr. moist/pink, EOMI, Sclerae nonicteric Neck: Supple, 2+ carotid pulse no bruit, No LAD, Without JVD or thyroid abnormality Respiratory: Clear to auscultation bilaterally, Normal air movement Cardiovascular: Regular rate/rhythm, Normal S1 S2 Gastrointestinal: Normal bowel sounds, No tenderness Musculoskeletal: No tenderness Integumentary: No rashes Neurological: Normal speech, Normal strength at 5/5 x4 extr, Normal tone, Normal affect - Studies Laboratory Data (last 24 hrs) 12/29/21 21:10: PT 12.0, INR 1.09 12/29/21 21:10: WBC 17.50 H, Hgb 14.6, Hct 43.3, Plt Count 194 12/29/21 21:10: Sodium 137, Potassium 3.6, BUN 15, Creatinine 1.18, Glucose 106, Magnesium 1.6 L, Total Bilirubin 0.7, AST 61 H, ALT 73, Alkaline Phosphatase 89 Assessment and Plan - Problems (Diagnosis) (1) Shortness of breath Current Visit: Yes Status: Acute (2) Leukocytosis Current Visit: Yes Status: Acute Qualifiers: Leukocytosis type: lymphocytosis Qualified Code(s): D72.820 - Lymphocytosis (symptomatic) (3) Lactic acidosis Current Visit: Yes Status: Acute (4) Productive cough Current Visit: Yes Status: Acute (5) Hypertension Current Visit: Yes Status: Chronic Qualifiers: Hypertension type: primary hypertension Qualified Code(s): I10 - Essential (primary) hypertension (6) Hyperlipidemia Current Visit: Yes Status: Chronic Qualifiers: Hyperlipidemia type: mixed hyperlipidemia Qualified Code(s): E78.2 - Mixed hyperlipidemia (7) GERD (gastroesophageal reflux disease) Current Visit: Yes Status: Chronic Qualifiers: Esophagitis presence: without esophagitis Qualified Code(s): K21.9 - Gastro-esophageal reflux disease without esophagitis - Plan -Patient is flagging for sepsis with elevated white blood cell count, elevated lactic acid, tachycardia, tachypnea. Blood cultures and sputum cultures sent. Will trend lactic acid. Procalcitonin ordered. Sepsis fluid bolus initiated. Rocephin and azithromycin given in the ED. We will continue. -continue scheduled breathing treatments and Solu-Medrol for shortness of breath. Tessalon Perles for cough. Incentive spirometry ordered. Patient was satting at 100% on my assessment. Supplemental oxygen ordered if needed. Pulmonology consulted. -CT chest pending -Continue home medications as appropriate DVT PPx: Lovenox Code: Full Discharge Plan: Home Plan to discharge in: 48 Hours - Advance Directives Does patient have a Living Will: No Does patient have a Durable POA for Healthcare: No - Code Status/Comfort Care Code Status Assessed: Yes (Full) Critical Care: No Time Spent Managing Pts Care (In Minutes): 70
[2021-12-30] MEDS: METHYLPREDNISOLONE 40 MG INJ IV SCH ×3 (00:10→11:30)
[2021-12-30] MEDS ORDERED: LORAZEPAM 0.5 MG TABLET ONE (00:24)
[2021-12-30] MEDS ORDERED: METHYLPREDNISOLONE 40 MG INJ ONE ×3 (00:25→11:08)
[2021-12-30] MEDS: IPRATROPIUM BROM 0.5MG/2.5ML NEB SCH ×4 (01:30→20:05)
[2021-12-30] MEDS ORDERED: IPRATROPIUM BROM 0.5MG/2.5ML ONE ×3 (01:36→14:08)
[2021-12-30] MEDS ORDERED: BENZONATATE 100 MG CAP PO ONE (02:08)
[2021-12-30] MEDS ORDERED: NA CHLORIDE 0.9% 1,000 ML ONE (02:08)
[2021-12-30] MEDS: BENZONATATE 100 MG CAP PO PRN ×2 (02:14→20:58)
[2021-12-30 03:52] VITALS: BMI 36.3
[2021-12-30] MEDS ORDERED: NA CHLORIDE 0.9% 500 ML ONE (04:02)
[2021-12-30 04:38] LABS: Absolute Lymphocytes (CBC) 0.7 K/uL (0.7-4.9); Hematocrit 39.3 % (39.6-49.0); Lymphocytes % 6.9 % (15.3-44.8); MPV 7.9 fL (7.6-11.3); RBC Red Blood Cell Count 4.54 M/uL (4.33-5.43)
[2021-12-30 05:04] LABS: Albumin 3.3 g/dL (3.4-5.0); Bilirubin Total 0.4 mg/dL (0.2-1.0); Magnesium 1.8 mg/dL (1.8-2.4); Phosphorus 3.5 mg/dL (2.5-4.9); Potassium 4.7 mmol/L (3.5-5.1); Protein, Total 6.7 g/dL (6.4-8.2); Thyroid Stimulating Hormone 0.123 uIU/mL (0.360-3.740)
[2021-12-30 05:16] LABS: Urine Blood Negative (Negative); Urine Glucose Negative (Negative); Urine Protein Negative (Negative); Urine Specific Gravity 1.015 (1.005-1.030); Urine pH 6.5 (5.0-7.0)
[2021-12-30 05:32] LABS: Urine Appearance Clear (Clear); Urine Bilirubin Negative (Negative); Urine Blood Negative (Negative); Urine Color Yellow (Yellow); Urine Glucose Negative (Negative); Urine Protein Negative (Negative); Urine Specific Gravity 1.015 (1.005-1.030); Urine Urobilinogen 0.2 mg/dL (0.2-1.0); Urine pH 6.5 (5.0-7.0)
[2021-12-30 05:38] LABS: Urine Microscopic Reflex NO UMIC
[2021-12-30] MEDS ORDERED: MAGNESIUM SULFATE 1 gm IVPB 1 GM/100 ML BAG IV ONE ×2 (06:30→06:37)
[2021-12-30] MEDS ORDERED: ENOXAPARIN 40 MG/0.4 ML SQ ONE (07:34)
[2021-12-30] MEDS: ENOXAPARIN 40 MG/0.4 ML SQ SCH (07:41)
--- NOTE | 2021-12-30 08:43 | EKG ---
Test Date: 2021-12-29 Test Time: 21:37:19 Manager Human Capital: MEASUREMENT RESULTS: Intervals: Rate: 106 WI: 120 QRSD: 90 QT: 374 QTc: 496 [place]: P: 53 WI: 120 QRS: 32 T: 33 INTERPRETIVE STATEMENTS: Sinus tachycardia Otherwise normal ECG Compared to ECG 12/28/2021 22:03:27 Sinus rhythm no longer present Electronically Signed On 12-30-21 08:42:10 CDT by Jn Pool
--- NOTE | 2021-12-30 11:21 | RAD REPORT ---
EXAM DESCRIPTION: CT - Chest For Pe Angio - 12/30/2021 5:10 am CLINICAL HISTORY: 56 years Male Congestion;COPD;Cough COMPARISON: Radiograph of the chest performed on the same day. TECHNIQUE: Images were obtained in axial, sagittal, and coronal planes. Intravenous contrast was adm inistered. 3-D MIP imaging was performed. This exam was performed according to our departmental dose-optimization program which includes use of Automated Exposure Control, adjustment of the mA and/or kV according to patient size and/or use of iterative reconstruction technique. FINDINGS: No filling defects pulmonary arteries bilaterally. No aortic dissection or dilatation. No pericardial or pleural effusions bilaterally. No adenopathy. Air collection posterior right superi or mediastinal possibly centimeters diverticulum. Moderate centrilobular emphysema. No abnormal airspace attenuation lung yip bilaterally. No lung p arenchymal infiltrates or nodules seen. No pneumothorax. No acute osseous abnormality. No abnormality upper abdomen. IMPRESSION: No evidence for pulmonary embolus. No aortic dissection or dilatation. Moderate COPD. No infiltrates seen. Suspected Zenker's diverticulum on right. Electronically signed by: Annamarie Muñiz MD 12/29/2021 11:03 PM CDT Due to temporary technical issues with the PACS/Fluency reporting system, reports are being signed by the in house radiologists without review as a courtesy to insure prompt reporting. The interpreting radiologist is fully responsible for the content of the report.
[2021-12-30] MEDS: DULERA 200/5 (MOMETASONE/FORMOTEROL) INHALER IH SCH ×2 (11:38→20:49)
--- NOTE | 2021-12-30 11:42 | P.CNS ---
Date of Consult: 12/30/21 Reason for Consult: COPD exacerbation Primary Care Provider: None Chief Complaint: Shortness of breath History of Present Illness: Patient is 56 years of age from [place] is been sick for the past 3 weeks he has been to the emergency room 3 times came back again could not breathe very short of breath he is doing with bit better and is an active smoker no prior history of COPD feeling better Allergies No Known Allergies Allergy (Unverified 12/29/21 23:20) Home Medications: Aspirin [Aspirin EC 81 MG] 81 mg PO DAILY 12/30/21 Atorvastatin Calcium [Lipitor] 40 mg PO DAILY 12/30/21 Benzonatate [Tessalon Perle] 100 mg PO TID 12/30/21 Guaifenesin/Codeine Phosphate [Guaiatussin AC Liquid] 10 ml PO Q4H 12/30/21 Levothyroxine Sodium [Levothyroxine] 150 mcg PO DAILY 12/30/21 Metoclopramide HCl [Reglan] 10 mg PO Q6H 12/30/21 Metoprolol Tartrate [Lopressor] 1.5 tab PO BID 12/30/21 Pantoprazole [Protonix Tab] 40 mg PO Q12H 12/30/21 Pregabalin [Lyrica] 100 mg PO Q8H 12/30/21 Promethazine/Dextromethorphan [Promethazine-Dm Solution] 5 ml PO Q4H 12/30/21 Tizanidine [Zanaflex*] 4 mg PO BID 12/30/21 methylPREDNISolone [Methylprednisolone] 4 mg PO DIRECTED 12/30/21 - Past Medical/Surgical History Diabetic: No -: HTN -: HLD -: GERD -: Back Surgery Psychosocial/ Personal History: Patient is visiting. He lives in [place]. - Family History Mother Medical History: Lung disease - Social History Smoking Status: Current some day smoker Alcohol use: Yes CD- Drugs: No Caffeine use: Yes Place of Residence: Home Review of Systems 10-point ROS is otherwise unremarkable Physical Examination Temp Pulse Resp BP Pulse Ox 97.3 F 90 18 137/73 97 12/30/21 04:00 12/30/21 07:24 12/30/21 07:24 12/30/21 07:24 12/30/21 07:24 General: Alert, In no apparent distress, Oriented x3 Respiratory: Expiratory wheezes Cardiovascular: Normal S1 S2 Gastrointestinal: Normal bowel sounds, Soft and benign Laboratory Data (last 24 hrs) 12/29/21 21:10: PT 12.0, INR 1.09 12/29/21 21:10: WBC 17.50 H, Hgb 14.6, Hct 43.3, Plt Count 194 12/29/21 21:10: Sodium 137, Potassium 3.6, BUN 15, Creatinine 1.18, Glucose 106, Magnesium 1.6 L, Total Bilirubin 0.7, AST 61 H, ALT 73, Alkaline Phosphatase 89 - Problems (1) COPD exacerbation Current Visit: Yes Status: Acute Plan: Patient is 56 years of age has been sick for 3 weeks has had worsening shortness of breath productive cough and active smoker no prior history of COPD not responded to outpatient therapy suspect that he has underlying significant COPD plan to change him over to p.o. levofloxacin in addition to p.o. prednisone and a bronchodilator chest x-ray CT scan is all negative he is currently stable vital signs are all stable oxygenation satisfactory plan to discharge home on prednisone 20 mg twice a day for a week in addition to levofloxacin 750 mg daily for 7 days and a bronchodilator which have started him on Dulera aloe up with me in 2 weeks patient is from [place] he plans to stay here for quite some time
[2021-12-30] MEDS: predniSONE 20 MG TAB PO SCH ×2 (12:00→20:48)
--- NOTE | 2021-12-30 16:14 | P.DS ---
Admission Date: 12/29/21 Discharge Date: 01/02/22 Primary Care Provider: None Disposition: ROUTINE DISCHARGE Discharge Condition: FAIR Reason for Admission: Shortness of breath Consultations: Pulmonary-Dr. Case - Problems (1) COPD exacerbation Current Visit: Yes Status: Acute (2) GERD (gastroesophageal reflux disease) Current Visit: Yes Status: Chronic Qualifiers: Esophagitis presence: without esophagitis Qualified Code(s): K21.9 - Gastro-esophageal reflux disease without esophagitis (3) Hyperlipidemia Current Visit: Yes Status: Chronic Qualifiers: Hyperlipidemia type: mixed hyperlipidemia Qualified Code(s): E78.2 - Mixed hyperlipidemia Brief History of Present Illness: Patient is a 56-year-old male with hypertension, hyperlipidemia, GERD who presented to the ED via EMS with complaints of cough and shortness of breath for about 1 week. This is his third visit for the same problem. He has been taking prednisone and guaifenesin without improvement. He was given Tussionex, Pepcid, Solu-Medrol, Rocephin, azithromycin, levalbuterol, ipratropium in the ED. Upon examination, patient is anxious and taking shallow breaths. He reported it is hard for him to breathe because he is coughing up sputum. Labs significant for WBC of 17.5, lactic acid 3.4, magnesium 1.6, flu and Covid negative. Chest x-ray suggested viral etiology. Sepsis fluids bolus, blood cultures, sputum culture ordered. Patient is tachycardic, Hypertensive, and tachypneic. Ordered scheduled breathing treatments. Repeat lactic acid every 4 hours. Procalcitonin ordered. Pulmonology consulted. Patient admitted for further evaluation and treatment of shortness of breath. Hospital Course: Patient admitted to the medical floor and treated for COPD exacerbation with IV steroid, scheduled bronchodilators. PulmonaryDr. Case saw patient and assisted with management. He reported difficulty clearing secretions from his airway. Patient symptoms improved with the bronchodilators and Mucomyst inhalers. 1 set of blood culture grew gram-positive cocci, repeat blood cultures yielded no growth suggesting skin contaminant acquisition. Patient has been stable on room air, states that his symptoms are significantly improved, he is ambulatory on room air with no issues. He is deemed stable for discharge. Patient discharged with long-acting bronchodilators, and a short course prednisone therapy. Vital Signs/Physical Exam: Temp Pulse Resp BP Pulse Ox 97.7 F 91 H 18 145/84 H 97 12/30/21 16:00 12/30/21 16:00 12/30/21 16:00 12/30/21 16:00 12/30/21 16:00 General: Alert, In no apparent distress, Oriented x3 HEENT: Mucous membr. moist/pink Neck: JVD not distended Respiratory: Clear to auscultation bilaterally, Normal air movement Cardiovascular: No edema, Regular rate/rhythm, Normal S1 S2, No murmurs Gastrointestinal: Soft and benign, Non-distended Musculoskeletal: No swelling Integumentary: No rashes, No cyanosis Neurological: Normal strength at 5/5 x4 extr Laboratory Data at Discharge: WBC 9.80 K/uL (4.3-10.9) D 12/30/21 04:25 Hgb 13.2 g/dL (13.6-17.9) L 12/30/21 04:25 Hct 39.3 % (39.6-49.0) L 12/30/21 04:25 Plt Count 163 K/uL (152-406) 12/30/21 04:25 PT 12.0 SECONDS (9.5-12.5) 12/29/21 21:10 INR 1.09 12/29/21 21:10 Sodium 138 mmol/L (136-145) 12/30/21 04:25 Potassium 4.7 mmol/L (3.5-5.1) 12/30/21 04:25 BUN 13 mg/dL (7-18) 12/30/21 04:25 Creatinine 1.20 mg/dL (0.55-1.3) 12/30/21 04:25 Glucose 221 mg/dL (74-106) H 12/30/21 04:25 Phosphorus 3.5 mg/dL (2.5-4.9) 12/30/21 04:25 Magnesium 1.8 mg/dL (1.8-2.4) 12/30/21 04:25 Total Bilirubin 0.4 mg/dL (0.2-1.0) 12/30/21 04:25 AST 47 U/L (15-37) H 12/30/21 04:25 ALT 63 U/L (12-78) 12/30/21 04:25 Alkaline Phosphatase 74 U/L (45-117) 12/30/21 04:25 Triglycerides 59 mg/dL (<150) 12/30/21 04:25 Cholesterol 111 mg/dL (<200) 12/30/21 04:25 HDL Cholesterol 61 mg/dL (40-60) H 12/30/21 04:25 Cholesterol/HDL Ratio 1.82 12/30/21 04:25 Home Medications: Albuterol Inhaler [Ventolin Inhaler*] 2 puff IH Q6H PRN #1 hfa.aer.ad 12/30/21 Atorvastatin Calcium [Lipitor] 40 mg PO DAILY 12/30/21 Benzonatate [Tessalon Perle*] 200 mg PO TID PRN #60 cap 12/30/21 Levothyroxine Sodium [Levothyroxine] 150 mcg PO DAILY 12/30/21 Metoclopramide HCl [Reglan] 10 mg PO Q6H 12/30/21 Metoprolol Tartrate [Lopressor*] 1.5 tab PO BID 12/30/21 Pantoprazole [Protonix Tab*] 40 mg PO Q12H 12/30/21 Pregabalin [Lyrica] 100 mg PO Q8H 12/30/21 Promethazine/Dextromethorphan [Promethazine-Dm 6.25-15 mg/5Ml] 5 ml PO Q4H 12/30/21 Tizanidine [Zanaflex*] 4 mg PO BID 12/30/21 predniSONE [Prednisone*] 20 mg PO BID #10 tab 12/30/21 Acetylcyst 20% Resp [Mucomyst 20% (FOR RESPIRATORY)] 4 ml IH BID #70 ml 01/02/22 Aspirin [Aspirin EC 81 MG] 81 mg PO DAILY #30 01/02/22 Azithromycin [Zithromax] 500 mg PO DAILY 7 Days #7 tablet 01/02/22 Fluticasone/Vilanterol [Breo Ellipta 200-25 Mcg INH] 1 each IH DAILY #30 blst.w.dev 01/02/22 New Medications: Aspirin [Aspirin EC 81 MG] 81 mg PO DAILY #30 Fluticasone/Vilanterol [Breo Ellipta 200-25 Mcg INH] 1 each IH DAILY #30 blst.w.dev Acetylcyst 20% Resp [Mucomyst 20% (FOR RESPIRATORY)] 4 ml IH BID #70 ml predniSONE [Prednisone*] 20 mg PO BID #10 tab Benzonatate [Tessalon Perle*] 200 mg PO TID PRN #60 cap PRN Reason: Cough Albuterol Inhaler [Ventolin Inhaler*] 2 puff IH Q6H PRN #1 hfa.aer.ad PRN Reason: Shortness Of Breath Azithromycin [Zithromax] 500 mg PO DAILY 7 Days #7 tablet Physician Discharge Instructions: Levofloxacin discontinued Dr sent a prescription in for Zithromax . Nurse called in prescription for a nebulizer . For discharge to follow-up in the in 2 weeks Diet: AHA Activity: Ad yefri Followup: NONE,NONE [Primary Care Provider] - Time spent managing pt's care (in minutes): 36
--- NOTE | 2021-12-30 17:47 | P.PN ---
Subjective Date of Service: 12/30/21 Primary Care Provider: None Chief Complaint: Shortness of breath Patient reports significant improvement in her shortness of breath. He is currently tolerating room air but states his breathing is now back to baseline. Physical Examination - Vital Signs Temperature: 97.7 F Blood Pressure: 145/84 Pulse: 91 Respirations: 18 Pulse Ox (%): 97 - Physical Exam General: Alert, In no apparent distress, Oriented x3 HEENT: Mucous membr. moist/pink, Sclerae nonicteric Neck: Supple, JVD not distended Respiratory: Clear to auscultation bilaterally, Normal air movement Cardiovascular: No edema, Regular rate/rhythm, Normal S1 S2 Gastrointestinal: Normal bowel sounds, Soft and benign, Non-distended, No tenderness Musculoskeletal: No swelling, No tenderness Integumentary: No rashes, No cyanosis Neurological: Normal strength at 5/5 x4 extr, Cranial nerves 3-12 intact - Studies Laboratory Data (last 24 hrs) 12/29/21 21:10: PT 12.0, INR 1.09 12/29/21 21:10: WBC 17.50 H, Hgb 14.6, Hct 43.3, Plt Count 194 12/29/21 21:10: Sodium 137, Potassium 3.6, BUN 15, Creatinine 1.18, Glucose 106, Magnesium 1.6 L, Total Bilirubin 0.7, AST 61 H, ALT 73, Alkaline Phosphatase 89 Assessment And Plan - Current Problems (Diagnosis) (1) Acute bronchitis Current Visit: Yes Status: Acute (2) COPD exacerbation Current Visit: Yes Status: Acute (3) Hypertension Current Visit: Yes Status: Chronic Qualifiers: Hypertension type: primary hypertension Qualified Code(s): I10 - Essential (primary) hypertension - Plan Continue scheduled bronchodilators. Patient seen by pulmonary and transitioned from IV solumedrol to oral prednisone. Continue oral Levaquin. Monitor for 1 more day. Possible discharge in a.m.
[2021-12-30] MEDS ORDERED: VANCOMYCIN 1 GM in NA CHLORIDE 0.9% 250 ML IVPB SCH (18:52)
[2021-12-30] MEDS ORDERED: VANCOMYCIN 1.75 GM in NA CHLORIDE 0.9% 500 ML IVPB ONE (20:00)
[2021-12-30] MEDS ORDERED: CEFTRIAXONE 1,000 MG in NA CHLORIDE 0.9% 50 ML IVPB SCH (21:00)
[2021-12-30] MEDS ORDERED: LORazepam 2 MG/ML VIAL IV ONE (22:17)
[2021-12-30] MEDS: ALBUTEROL 2.5 MG/3 ML NEB SOL NEB PRN (22:55)
[2021-12-31] MEDS: PANTOPRAZOLE 40MG TABLET PO SCH ×2 (00:10→11:56)
[2021-12-31] MEDS: PREGABALIN 50 MG CAP PO SCH ×3 (00:10→14:31)
[2021-12-31] MEDS: METOCLOPRAMIDE 5 MG TAB PO SCH ×4 (00:10→16:07)
[2021-12-31] MEDS: IPRATROPIUM BROM 0.5MG/2.5ML NEB SCH ×4 (01:45→20:00)
[2021-12-31 04:30] LABS: Hematocrit 38.8 % (39.6-49.0); Lymphocytes % 5.4 % (15.3-44.8); RBC Red Blood Cell Count 4.46 M/uL (4.33-5.43)
[2021-12-31 04:47] LABS: Albumin 3.1 g/dL (3.4-5.0); Bilirubin Total 0.3 mg/dL (0.2-1.0); Magnesium 2.3 mg/dL (1.8-2.4); Potassium 4.3 mmol/L (3.5-5.1); Protein, Total 6.2 g/dL (6.4-8.2)
[2021-12-31 04:58] LABS: Blood Morphology Comment NOT SEEN (NOT SEEN); Platelet Estimate ADEQ
[2021-12-31] MEDS: LEVOTHYROXINE SOD 0.1 MG TAB PO SCH (06:14)
[2021-12-31] MEDS ORDERED: VANCOMYCIN 1 GM in NA CHLORIDE 0.9% 250 ML IVPB SCH (08:00)
[2021-12-31] MEDS: ALBUTEROL 2.5 MG/3 ML NEB SOL NEB PRN (08:38)
[2021-12-31] MEDS ORDERED: VANCOMYCIN 2 GM in NA CHLORIDE 0.9% 500 ML IVPB SCH (09:00)
[2021-12-31] MEDS: levoFLOXacin 750 MG TAB PO SCH (09:05)
[2021-12-31] MEDS: DULERA 200/5 (MOMETASONE/FORMOTEROL) INHALER IH SCH ×2 (09:05→20:59)
[2021-12-31] MEDS: ATORVASTATIN 40 MG TAB PO SCH (09:06)
[2021-12-31] MEDS: METOPROLOL TAR 25 MG TAB PO SCH ×2 (09:06→20:58)
[2021-12-31] MEDS: ENOXAPARIN 40 MG/0.4 ML SQ SCH (09:07)
[2021-12-31] MEDS: TIZANIDINE 4 MG TABLET PO SCH ×2 (09:07→20:58)
[2021-12-31] MEDS: predniSONE 20 MG TAB PO SCH (09:10)
[2021-12-31] MEDS ORDERED: FUROSEMIDE 20 MG/ 2ML VIAL IV ONE (11:22)
[2021-12-31] MEDS: METHYLPREDNISOLONE 40 MG INJ IV SCH ×2 (11:55→16:08)
[2021-12-31] MEDS: BENZONATATE 100 MG CAP PO PRN (11:56)
--- NOTE | 2021-12-31 12:17 | P.PN ---
Subjective Date of Service: 12/31/21 Primary Care Provider: None Chief Complaint: Shortness of breath No change patient is complaining of significant shortness of breath unable to cough up phlegm worse at night Review of Systems Respiratory: Cough, Shortness of Breath Physical Examination - Vital Signs Temperature: 97 F Blood Pressure: 119/74 Pulse: 76 Respirations: 16 Pulse Ox (%): 100 - Physical Exam General: Alert, Moderate distress Respiratory: Expiratory wheezes Cardiovascular: No edema, Regular rate/rhythm, Normal S1 S2 - Studies Microbiology Data (last 24 hrs): 12/29/21 20:45 Blood - Blood Blood Culture Gram Stain - Final 12/29/21 20:45 Blood - Blood Gram Stain - Final Assessment And Plan - Current Problems (Diagnosis) (1) COPD exacerbation Current Visit: Yes Status: Acute Plan: Patient is still complaining of significant shortness of breath unable to cough up sputum change to IV Solu-Medrol continue with levofloxacin DC vancomycin most likely a contaminant add a low-dose Lasix plus 2D echo
--- NOTE | 2021-12-31 12:53 | P.PN ---
Subjective Date of Service: 12/31/21 Primary Care Provider: None Chief Complaint: Shortness of breath Patient reports his symptoms are worse at night with coughing. He is tolerating room air. Blood culture done on presentation grew gram-positive cocci in 1 out of 4 bottles. Physical Examination - Vital Signs Temperature: 97 F Blood Pressure: 119/74 Pulse: 76 Respirations: 16 Pulse Ox (%): 100 - Studies Microbiology Data (last 24 hrs): 12/29/21 20:45 Blood - Blood Blood Culture Gram Stain - Final 12/29/21 20:45 Blood - Blood Gram Stain - Final Assessment And Plan - Current Problems (Diagnosis) (1) Acute bronchitis Current Visit: Yes Status: Acute (2) COPD exacerbation Current Visit: Yes Status: Acute (3) Hypertension Current Visit: Yes Status: Chronic Qualifiers: Hypertension type: primary hypertension Qualified Code(s): I10 - Essential (primary) hypertension - Plan Physical Exam General: Alert, In no apparent distress, Oriented x3 HEENT: Mucous membr. Sclerae nonicteric Neck: Supple, JVD not distended Respiratory: Clear to auscultation bilaterally, Normal air movement Cardiovascular: No edema, Regular rate/rhythm, Normal S1 S2 Gastrointestinal: Normal bowel sounds, Soft and benign, Non-distended, No tenderness Musculoskeletal: No swelling, No tenderness Integumentary: No rashes, No cyanosis Neurological: Normal strength at 5/5 x4 extr, Cranial nerves 3-12 intact Continue scheduled bronchodilators. Patient seen by pulmonary and restarted on IV solumedrol due to persistent symptoms. Continue oral Levaquin. Gram-positive cocci in 1 blood culture bottle is likely a skin contaminant. Repeat blood culture today Continue to monitor for improvement Disposition: Home in 1 to 2 days.
[2021-12-31] MEDS: ALBUTEROL 2.5 MG/3 ML NEB SOL NEB SCH ×2 (13:44→20:00)
[2022-01-01] MEDS: PREGABALIN 50 MG CAP PO SCH ×3 (00:40→15:12)
[2022-01-01] MEDS: METOCLOPRAMIDE 5 MG TAB PO SCH ×4 (00:40→16:22)
[2022-01-01] MEDS: PANTOPRAZOLE 40MG TABLET PO SCH ×2 (00:40→10:58)
[2022-01-01] MEDS: METHYLPREDNISOLONE 40 MG INJ IV SCH ×3 (00:40→16:23)
[2022-01-01] MEDS: ALBUTEROL 2.5 MG/3 ML NEB SOL NEB SCH ×4 (01:00→19:55)
[2022-01-01] MEDS: IPRATROPIUM BROM 0.5MG/2.5ML NEB SCH ×4 (01:00→19:55)
[2022-01-01 04:20] LABS: Absolute Lymphocytes (CBC) 0.7 K/uL (0.7-4.9); Hematocrit 38.1 % (39.6-49.0); Lymphocytes % 5.5 % (15.3-44.8); MPV 7.6 fL (7.6-11.3); RBC Red Blood Cell Count 4.42 M/uL (4.33-5.43)
[2022-01-01 04:31] LABS: Albumin 3.1 g/dL (3.4-5.0); Bilirubin Total 0.3 mg/dL (0.2-1.0); Magnesium 2.4 mg/dL (1.8-2.4); Potassium 4.1 mmol/L (3.5-5.1); Protein, Total 6.2 g/dL (6.4-8.2)
[2022-01-01] MEDS: LEVOTHYROXINE SOD 0.1 MG TAB PO SCH (06:17)
[2022-01-01] MEDS: ENOXAPARIN 40 MG/0.4 ML SQ SCH (08:24)
[2022-01-01] MEDS: levoFLOXacin 750 MG TAB PO SCH (08:24)
[2022-01-01] MEDS: METOPROLOL TAR 25 MG TAB PO SCH ×2 (08:25→20:48)
[2022-01-01] MEDS: ATORVASTATIN 40 MG TAB PO SCH (08:26)
[2022-01-01] MEDS: TIZANIDINE 4 MG TABLET PO SCH ×2 (08:26→20:48)
--- NOTE | 2022-01-01 08:51 | ECHO ---
HEIGHT: 5 ft 9 in WEIGHT: 245 lb 15.869 oz DATE OF STUDY: 12/31/[address]: Giuseppe Case MD 2-DIMENSIONAL: YES M.MODE: YES DOPPLER: YES COLOR FLOW: YES TDS: YES PORTABLE: NO DEFINITY: NO BUBBLE STUDY: NO DIAGNOSIS: SHORTNESS OF BREATH CARDIAC HISTORY: CATHERIZATION: NO SURGERY: NO PROSTHETIC VALVE: NO PACEMAKER: NO MEASUREMENTS (cm) DIASTOLIC (NORMALS) SYSTOLIC (NORMALS) IVSd 1.2 (0.6-1.2) LA Diam 3.5 (1.9-4.0) LVEF 65% LVIDd 4.2 (3.5-5.7) LVIDs 2.7 (2.0-3.5) %FS 36% LVPWd 1.3 (0.6-1.2) Ao Diam 2.7 (2.0-3.7) 2 DIMENSIONAL ASSESSMENT: RIGHT ATRIUM: NORMAL LEFT ATRIUM: NORMAL RIGHT VENTRICLE: NORMAL LEFT VENTRICLE: NORMAL TRICUSPID VALVE: NORMAL MITRAL VALVE: NORMAL PULMONIC VALVE: NORMAL AORTIC VALVE: NORMAL PERICARDIAL EFFUSION: NONE AORTIC ROOT: NORMAL LEFT VENTRICULAR WALL MOTION: NORMAL. DOPPLER/COLOR FLOW: MILD TRICUSPID REGURGITATION. COMMENTS: TECHNICALLY DIFFICULT STUDY. MILD TRICUSPID REGURGITATION - NORMAL RIGHT VENTRICULAR SYSTOLIC PRESSURE. NORMAL LEFT VENTRICULAR SIZE AND FUNCTION. TECHNOLOGIST: RASHEEDA LEAVITT
[2022-01-01] MEDS: DULERA 200/5 (MOMETASONE/FORMOTEROL) INHALER IH SCH (09:00)
[2022-01-01] MEDS: ACETYLCYST 20% 4 ML VIAL IH SCH ×3 (09:49→19:55)
[2022-01-01] MEDS: AZITHROMYCIN 250 MG TAB PO SCH (10:12)
--- NOTE | 2022-01-01 12:13 | P.PN ---
Subjective Date of Service: 01/01/22 Primary Care Provider: None Chief Complaint: Shortness of breath Not improving still complaining of significant amount of chest congestion worse at night Review of Systems General: Weakness Respiratory: Cough, Shortness of Breath Physical Examination - Vital Signs Temperature: 97.2 F Blood Pressure: 113/66 Pulse: 65 Respirations: 21 Pulse Ox (%): 98 - Physical Exam General: Alert, Moderate distress Respiratory: Expiratory wheezes Cardiovascular: No edema - Studies Microbiology Data (last 24 hrs): 12/29/21 21:10 Blood - Blood Gram Stain - Final Assessment And Plan - Current Problems (Diagnosis) (1) COPD exacerbation Current Visit: Yes Status: Acute Plan: No change in patient's condition he still having significant distress varied Mucomyst Daliresp change to Zithromax as this anti-inflammatory effect normal 2D echocardiogram no response to IV diuretic room air saturation is normal
--- NOTE | 2022-01-01 13:26 | P.PN ---
Subjective Date of Service: 01/01/22 Primary Care Provider: None Chief Complaint: Shortness of breath Patient still reports shortness of breath and not being able to clear secretions from his throat. He is tolerating room air. Repeat blood cultures have yielded no growth. Physical Examination - Vital Signs Temperature: 97.2 F Blood Pressure: 113/66 Pulse: 65 Respirations: 21 Pulse Ox (%): 98 - Studies Microbiology Data (last 24 hrs): 12/29/21 21:10 Blood - Blood Gram Stain - Final Assessment And Plan - Current Problems (Diagnosis) (1) Acute bronchitis Current Visit: Yes Status: Acute (2) COPD exacerbation Current Visit: Yes Status: Acute (3) Hypertension Current Visit: Yes Status: Chronic Qualifiers: Hypertension type: primary hypertension Qualified Code(s): I10 - Essential (primary) hypertension - Plan Physical Exam General: Alert, In no apparent distress, Oriented x3 HEENT: Mucous membr. Sclerae nonicteric Neck: Supple, JVD not distended Respiratory: Clear to auscultation bilaterally, Normal air movement Cardiovascular: No edema, Regular rate/rhythm, Normal S1 S2 Gastrointestinal: Normal bowel sounds, Soft and benign, Non-distended, No tenderness Musculoskeletal: No swelling, No tenderness Integumentary: No rashes, No cyanosis Neurological: Normal strength at 5/5 x4 extr, Cranial nerves 3-12 intact Continue scheduled bronchodilators. Continue steroid and antibiotics. Repeat blood cultures: No growth. Vancomycin discontinued. Mucomyst inhaler to help clear secretions Mucinex. Disposition: Home in 1 to 2 days.
[2022-01-01] MEDS: ARFORMOTEROL TARTRATE 15 MCG/2 ML VIAL.NEB NEB SCH (19:55)
[2022-01-01] MEDS: GUAIFENESIN 600 MG SA TAB PO SCH (20:47)
[2022-01-01] MEDS: AMOX/K CLAV 875 MG TAB PO SCH (20:47)
[2022-01-01 20:59] VITALS: O2SAT 96
[2022-01-02] MEDS: PANTOPRAZOLE 40MG TABLET PO SCH ×2 (00:19→10:29)
[2022-01-02] MEDS: METOCLOPRAMIDE 5 MG TAB PO SCH ×3 (00:19→10:28)
[2022-01-02] MEDS: PREGABALIN 50 MG CAP PO SCH ×2 (00:20→10:28)
[2022-01-02] MEDS: METHYLPREDNISOLONE 40 MG INJ IV SCH ×2 (00:20→10:29)
[2022-01-02] MEDS: ALBUTEROL 2.5 MG/3 ML NEB SOL NEB SCH ×2 (01:50→08:29)
[2022-01-02] MEDS: IPRATROPIUM BROM 0.5MG/2.5ML NEB SCH ×2 (01:50→08:29)
[2022-01-02] MEDS: ACETYLCYST 20% 4 ML VIAL IH SCH ×2 (01:50→08:29)
[2022-01-02] MEDS: LEVOTHYROXINE SOD 0.1 MG TAB PO SCH (05:54)
[2022-01-02 06:20] LABS: Absolute Lymphocytes (CBC) 0.9 K/uL (0.7-4.9); Hematocrit 39.7 % (39.6-49.0); Lymphocytes % 6.9 % (15.3-44.8); RBC Red Blood Cell Count 4.55 M/uL (4.33-5.43)
[2022-01-02] MEDS: ARFORMOTEROL TARTRATE 15 MCG/2 ML VIAL.NEB NEB SCH (08:29)
--- NOTE | 2022-01-02 09:28 | P.PN ---
Subjective Date of Service: 01/02/22 Primary Care Provider: None Chief Complaint: COPD exacerbation Patient is doing much better today the Mucomyst helped Review of Systems 10-point ROS is otherwise unremarkable Physical Examination - Vital Signs Temperature: 96.8 F Blood Pressure: 145/89 Pulse: 70 Respirations: 16 Pulse Ox (%): 98 - Physical Exam General: Alert, Oriented x3 Respiratory: Clear to auscultation bilaterally, Diminished Cardiovascular: No edema, Regular rate/rhythm - Studies Microbiology Data (last 24 hrs): 12/29/21 21:10 Blood - Blood Gram Stain - Final Assessment And Plan - Current Problems (Diagnosis) (1) COPD exacerbation Current Visit: Yes Status: Acute Plan: Patient admitted with COPD exacerbation plan to discharge home on Zithromax 500 mg daily for 7 days Dulera inhaler prednisone 10 mg twice a day and some Mucomyst nebulized
[2022-01-02] MEDS: METOPROLOL TAR 25 MG TAB PO SCH (10:23)
[2022-01-02] MEDS: AZITHROMYCIN 250 MG TAB PO SCH (10:23)
[2022-01-02] MEDS: AMOX/K CLAV 875 MG TAB PO SCH (10:24)
[2022-01-02] MEDS: ENOXAPARIN 40 MG/0.4 ML SQ SCH (10:24)
[2022-01-02] MEDS: GUAIFENESIN 600 MG SA TAB PO SCH (10:24)
[2022-01-02] MEDS: ATORVASTATIN 40 MG TAB PO SCH (10:28)
[2022-01-02] MEDS: BENZONATATE 100 MG CAP PO PRN (10:29)
[2022-01-02] MEDS: TIZANIDINE 4 MG TABLET PO SCH (10:29)
[2022-01-02 12:13] VITALS: BP 116/73; TEMP 97.4
== END 2022-01-02 15:00 | disposition home or self-care (01) | DRG 191 ==
LOC: ER 20:00 → ERHOLD 22:43 → 2ND 12-30 14:48
PROVIDERS: ADMIT Internal Medicine; ATTEND Internal Medicine
DX: J44.1 Chronic obstructive pulmonary disease with (acute) exacerbation (principal); E87.2 Acidosis; J20.9 Acute bronchitis, unspecified; J44.0 Chronic obstructive pulmonary disease with (acute) lower respiratory infection; R00.0 Tachycardia, unspecified; R06.82 Tachypnea, not elsewhere classified; I10 Essential (primary) hypertension; K21.9 Gastro-esophageal reflux disease without esophagitis; E78.00 Pure hypercholesterolemia, unspecified; E78.2 Mixed hyperlipidemia; Z20.822 Contact with and (suspected) exposure to COVID-19; F17.210 Nicotine dependence, cigarettes, uncomplicated; Z71.6 Tobacco abuse counseling; Z79.82 Long term (current) use of aspirin; Z79.899 Other long term (current) drug therapy; Z83.6 Family history of other diseases of the respiratory system
CPT/HCPCS: 0240U; 36415; 71045; 71046; 71275; 80048; 80053; 80061; 80076; 80202; 81003; 83605; 83735; 83880; 84100; 84145; 84439; 84443; 84484; 85025; 85610; 87040; 87070; 87077; 87186; 87205; 93005; 93306; 94010; 96365; 96372; 96375; 99283; 99285; J0456; J1100; J1200; J1650; J1940; J2920; J3370; J3475; J7030; J7040; J7050; J7512; J7605; J7606; Q9967